=== PATIENT | male | born 1955 | race African-American/Black ===

== ENCOUNTER 2020-01-11 03:33 | Observation (INO) ==
[2020-01-11] MEDS ORDERED: FUROSEMIDE 100 MG/10 ML VIAL IV STA (03:52)
[2020-01-11] MEDS ORDERED: methylPREDNISolone SOD SUC 125 MG/2 ML VIAL IV STA (03:52)
[2020-01-11] MEDS ORDERED: ONDANSETRON 4 MG/2 ML VIAL IV STA (03:52)
[2020-01-11] MEDS ORDERED: hydrALAZINE 20 MG/1 ML VIAL IV STA (03:52)
[2020-01-11] MEDS ORDERED: NITROGLYCERIN 2% OINT 1 INCH/GM PACK TOP STA (03:52)
[2020-01-11] MEDS ORDERED: MORPHINE 4 MG/1 ML VIAL IV STA (03:52)
[2020-01-11] MEDS ORDERED: niCARdipine INJ 25 MG in SODIUM CHLORIDE 0.9% 240 ML IV PRN (04:15)
[2020-01-11] MEDS ORDERED: niCARdipine 25 MG/10 ML VIAL IV ONE (04:17)
[2020-01-11 04:22] LABS: Basophils # 0.1 10*3/uL (0.0-0.2); Basophils % 0.5 % (0.0-0.8); Eosinophils # 0.2 10*3/uL (0.0-0.87); Eosinophils % 1.4 % (0.00-10.9); Hematocrit 40.8 VOL% (42.0-52.0); Immature Granulocytes % 0.2 %; Immature Granulocytes Absolute 0.03 #; Lymphocytes # 4.6 10*3/uL (1.4-4.0); Lymphocytes % 36.7 % (21.2-54.2); Mean Corpuscular HGB Conc 31.9 GM/DL (32-36); Mean Corpuscular Volume 91.9 FL (87-102); Mean Platelet Volume 11.9 FL (9.6-12.0); Monocytes % 7.7 % (1.7-12.7); Neutrophils % 53.5 % (38.7-73.9); Platelet Count 225 T/CUMM (130-400); Red Blood Count 4.44 MC/CUMM (3.8-5.5); Red Cell Distribution Width 13.4 % (9.3-17.3); White Blood Count 12.4 T/CUMM (4-12)
[2020-01-11 04:32] LABS: INR 0.9; PT Patient Result 10.2 SECS (9.8-11.9)
[2020-01-11 04:42] LABS: Albumin 3.7 G/DL (3.4-5.0); Bilirubin,Total 0.5 MG/DL (0.2-1.0); Calcium 9.7 MG/DL (8.5-10.1); Osmolality,Calculated 287.5 MOS/KG (273-304); Total Protein 9.4 G/DL (6.4-8.3)
[2020-01-11 04:42] LABS: Barbiturates Screen,Urine Negative (Negative); Benzodiazepines Screen,Urine Negative (Negative); Cannabinoid Screen,Urine Negative (Negative); Opiate Screen,Urine Negative (Negative); Phencyclidine Screen,Urine Negative (Negative)
[2020-01-11] MEDS ORDERED: POTASSIUM CHLORIDE 20 MEQ TABLET PO STA ×2 (04:48→07:31)
[2020-01-11 04:59] LABS: Apearance,Urine CLEAR (Clear); Bacteria,Urine Many /HPF (Few); Bilirubin,Urine Negative (Negative); Blood, Urine Small mg/dL (Negative); Glucose,Urine (UA) 150 mg/dL (Negative); Ketones,Urine Negative (Negative); Mucus,Urine Occasional /LPF (Occasional); Nitrite,Urine Negative (Negative); Protein,Urine 100 MG/DL; RBC,Urine 25 /HPF (0-4); Squamous Epithelial Cell,Urine Occasional /HPF (0-10); Urine Color Straw (Yellow); Urine Specific Gravity 1.013 (1.001-1.035); Urine Urobilinogen < 2.0 EU/DL (0.2-1.0); WBC,Urine 11 /HPF (0-6)
[2020-01-11] MEDS ORDERED: cefTRIAXone 1,000 MG in SODIUM CHLORIDE 0.9% 100 ML IV STA (05:20)
[2020-01-11] MEDS ORDERED: amLODIPine 10 MG TABLET PO STA (07:25)
[2020-01-11] MEDS ORDERED: DEXTROSE 50% 25 GM/50 ML VIAL IV PRN (07:27)
[2020-01-11] MEDS ORDERED: BISACODYL 5 MG TABLET PO PRN (07:27)
[2020-01-11] MEDS ORDERED: ACETAMINOPHEN 325 MG TABLET PO PRN (07:27)
[2020-01-11] MEDS ORDERED: ONDANSETRON 4 MG/2 ML VIAL IV PRN (07:27)
[2020-01-11] MEDS ORDERED: MORPHINE 4 MG/1 ML VIAL IV PRN (07:27)
[2020-01-11] MEDS ORDERED: GLUCAGON 1 MG VIAL IM PRN (07:27)
[2020-01-11 08:03] LABS: Risk Ratio 2.15; Thyroid Stimulating Hormone 1.84 uIU/ml (0.358-3.74); VLDL CHOLESTEROL 12.4 MG/DL
[2020-01-11] MEDS: ENOXAPARIN 40 MG/0.4 ML SYRINGE SUBCUT SCH (08:33)
[2020-01-11] MEDS: FUROSEMIDE 40 MG/4 ML VIAL IV SCH ×2 (10:18→16:11)
[2020-01-11] MEDS: carvediloL 3.125 MG TABLET PO SCH ×2 (10:29→20:48)
[2020-01-11] MEDS: PANTOPRAZOLE 40 MG TABLET PO SCH (10:29)
[2020-01-11] MEDS ORDERED: ALBUTEROL/IPRATROPIUM 3 ML NEB RESP TX ONE (11:11)
[2020-01-11 11:34] LABS: Hepatitis B Core IgM Quant 0.34 Index; Hepatitis B Surface Ag Quant < 0.10 Index; Hepatitis B Surface Ag Result Negative (Negative); Hepatitis C Virus Ab Quant 0.08 Index; Hepatitis C Virus Ab Result Negative (Negative)
[2020-01-11] MEDS ORDERED: OLMESARTAN 20 MG TABLET PO SCH (11:45)
[2020-01-11] MEDS ORDERED: hydrALAZINE 25 MG TABLET PO SCH (12:00)
[2020-01-11] MEDS: ALBUTEROL/IPRATROPIUM 3 ML NEB RESP TX SCH ×2 (13:00→19:16)
[2020-01-11] MEDS: INSULIN LISPRO 100 UNIT/ML SUBCUT SCH ×2 (13:20→16:11)
[2020-01-11] MEDS: INSULIN REGULAR 100 UNIT/ML SUBCUT SCH ×3 (13:21→20:47)
[2020-01-11] MEDS: hydrALAZINE 25 MG TABLET PO SCH ×2 (14:52→20:48)
[2020-01-11] MEDS: ASCORBIC ACID 500 MG TABLET PO SCH (20:48)
[2020-01-11] MEDS ORDERED: SIMVASTATIN 20 MG TABLET PO SCH (21:00)
[2020-01-11] MEDS ORDERED: INSULIN REGULAR 100 UNIT/ML SUBCUT ONE (23:00)
[2020-01-12] MEDS: ALBUTEROL/IPRATROPIUM 3 ML NEB RESP TX SCH ×2 (01:02→07:03)
[2020-01-12 05:36] LABS: Basophils % 0.1 % (0.0-0.8); Hematocrit 34.6 VOL% (42.0-52.0); Hemoglobin 11.3 GM/DL (14.0-18.0); Immature Granulocytes % 0.5 %; Immature Granulocytes Absolute 0.07 #; Lymphocytes # 2.7 10*3/uL (1.4-4.0); Lymphocytes % 17.6 % (21.2-54.2); Mean Corpuscular HGB Conc 32.7 GM/DL (32-36); Mean Corpuscular Volume 90.3 FL (87-102); Mean Platelet Volume 12.2 FL (9.6-12.0); Monocytes % 9.9 % (1.7-12.7); Neutrophils % 71.9 % (38.7-73.9); Platelet Count 215 T/CUMM (130-400); Red Blood Count 3.83 MC/CUMM (3.8-5.5); Red Cell Distribution Width 13.6 % (9.3-17.3); White Blood Count 15.5 T/CUMM (4-12)
[2020-01-12 05:54] LABS: Calcium 9.7 MG/DL (8.5-10.1); Osmolality,Calculated 292.3 MOS/KG (273-304)
[2020-01-12] MEDS ORDERED: INSULIN NPH/REGULAR 70/30 100 UNIT/ML SUBCUT SCH (07:30)
[2020-01-12 08:15] VITALS: BP 168/79
[2020-01-12] MEDS: carvediloL 3.125 MG TABLET PO SCH (08:34)
[2020-01-12] MEDS: PANTOPRAZOLE 40 MG TABLET PO SCH (08:34)
[2020-01-12] MEDS: ASCORBIC ACID 500 MG TABLET PO SCH (08:34)
[2020-01-12] MEDS: INSULIN REGULAR 100 UNIT/ML SUBCUT SCH (08:36)
[2020-01-12] MEDS: ENOXAPARIN 40 MG/0.4 ML SYRINGE SUBCUT SCH (08:36)
[2020-01-12] MEDS: INSULIN LISPRO 100 UNIT/ML SUBCUT SCH (08:37)
[2020-01-12] MEDS ORDERED: POTASSIUM CHLORIDE 20 MEQ TABLET PO ONE (10:45)
== END 2020-01-12 11:43 | disposition home or self-care (01) ==
LOC: N.EDINP 03:33 → N.ED 03:33 → N.TELEN 09:50 → SUATTDRO 10:08 → N.TELEN 10:10
PROVIDERS: ADMIT Internal Medicine; ATTEND Internal Medicine